=== PATIENT | female | born 1990 | race Caucasian/White ===

== ENCOUNTER 2024-07-06 15:44 | Inpatient (IN) | payer MEDICAID ==
[~2024-07-06] VITALS: Ht 162.6 cm; Wt 77.5 kg
[2024-07-06 20:08] VITALS: RESP 16; O2SAT 98
[2024-07-06] MEDS ORDERED: mag hydrox/Alum hydrox/simeth 30ml oral suspension PO PRN (21:00)
[2024-07-06] MEDS ORDERED: acetaminophen 325mg tablet PO PRN ×2 (21:00)
[2024-07-06] MEDS ORDERED: magnesium hydroxide 30ml (MOM) UD suspension PO PRN (21:00)
[2024-07-06 22:26] VITALS: BP 126/85; PULSE 78; RESP 16; TEMP 97; O2SAT 98
[2024-07-06] MEDS ORDERED: OLAN5TAB3 PO (23:59)
[2024-07-07] MEDS ORDERED: LAMO150T2 PO (00:07)
[2024-07-07] MEDS ORDERED: TEN1T PO (00:07)
[2024-07-07] MEDS ORDERED: FLUO10CA28 PO (00:07)
[2024-07-07] MEDS: OLANZAPINE 5 MG TABLET PO ONE (01:22)
[2024-07-07] MEDS: guanFACINE 1 mg tablet PO ONE (01:22)
[2024-07-07] MEDS: traZODone 50mg tablet PO PRN (01:23)
[2024-07-07] MEDS: lamoTRIgine 25mg tablet PO ONE (01:23)
[2024-07-07] MEDS: lamoTRIgine 100mg tablet PO ONE (01:24)
[2024-07-07 07:00] VITALS: BP 134/89; PULSE 71; RESP 16; TEMP 97.8; O2SAT 100
[2024-07-07] MEDS: lamoTRIgine 25mg tablet PO SCH (08:11)
[2024-07-07] MEDS: FLUoxetine 10mg capsule PO SCH (08:11)
[2024-07-07] MEDS: lamoTRIgine 100mg tablet PO SCH (08:11)
[2024-07-07 08:56] LABS: HEMOGLOBIN A1C 5.4 % (4.5-6.2)
[2024-07-07 09:20] LABS: CHOL/HDL RATIO 4.1 (0.00-4.99); CHOLESTEROL 200 MG/DL (0-200); HDL CHOLESTEROL 49 MG/DL (35-60); LDL CHOLESTEROL 128 MG/DL (50-100); TRIGLYCERIDES 93 MG/DL (20-135)
[2024-07-07] MEDS: OLANZAPINE 5 MG TABLET PO STA (10:05)
[2024-07-07] MEDS: LORazepam 1 MG tablet PO STA (10:05)
[2024-07-07 19:00] VITALS: BP 134/89; PULSE 105; RESP 16; TEMP 97.8; O2SAT 100
[2024-07-07] MEDS: diphenhydrAMINE 50 mg/ml inj ONE (19:39)
[2024-07-07] MEDS: haloperidol lactate 5mg/ml inj ONE (19:40)
[2024-07-07] MEDS: LORazepam 2 mg/ml vial ONE (19:40)
[2024-07-07] MEDS: OLANZAPINE 5 MG TABLET PO SCH (21:00)
[2024-07-07] MEDS: guanFACINE 1 mg tablet PO SCH (21:00)
[2024-07-08] MEDS: OLANZapine 5mg rapidly disint. tablet PO PRN (06:58)
[2024-07-08 07:00] VITALS: RESP 16; O2SAT 96; O2SAT 98
[2024-07-08] MEDS: diphenhydrAMINE 50 mg/ml inj ONE (07:52)
[2024-07-08] MEDS: LORazepam 2 mg/ml vial ONE (07:52)
[2024-07-08] MEDS: haloperidol lactate 5mg/ml inj ONE (07:52)
[2024-07-08 08:00] VITALS: BP 125/81; PULSE 77; RESP 16; TEMP 97.7; O2SAT 96
[2024-07-08 19:00] VITALS: RESP 16; O2SAT 96
[2024-07-08] MEDS ORDERED: haloperidol 5mg tablet PO PRN (19:30)
[2024-07-08 20:05] VITALS: RESP 16; O2SAT 96
[2024-07-08 20:08] VITALS: BP 112/81; PULSE 55; RESP 16; TEMP 97.4; O2SAT 96
[2024-07-08] MEDS: haloperidol 5mg tablet PO SCH (20:33)
[2024-07-09 07:30] VITALS: BP 129/94; PULSE 89; RESP 15; TEMP 98.2; O2SAT 99
[2024-07-09] MEDS ORDERED: TRAZ-251 PO (14:05)
[2024-07-09] MEDS ORDERED: HALO5TAB PO (14:13)
== END 2024-07-09 14:57 | disposition home or self-care (01) | DRG 750 ==
LOC: ADULT MH 20:08
PROVIDERS: ADMIT Psychiatry & Neurology Psychiatry; ATTEND Psychiatry & Neurology Psychiatry
DX: F25.9 Schizoaffective disorder, unspecified (principal); D68.00 Von Willebrand disease, unspecified; R45.851 Suicidal ideations; F90.9 Attention-deficit hyperactivity disorder, unspecified type; E66.3 Overweight; F43.10 Post-traumatic stress disorder, unspecified; T43.8X6A Underdosing of other psychotropic drugs, initial encounter; Z91.148 Patient's other noncompliance with medication regimen for other reason; Z90.49 Acquired absence of other specified parts of digestive tract; Z79.899 Other long term (current) drug therapy; Z88.8 Allergy status to other drugs, medicaments and biological substances; Y92.89 Other specified places as the place of occurrence of the external cause; Z68.29 Body mass index [BMI] 29.0-29.9, adult
CPT/HCPCS: 36415; 80061; 83036; 87081; 96365; 99291; J1200; J1630; J2060

== ENCOUNTER 2024-07-11 09:03 | Emergency (ER) | payer MEDICAID ==
[~2024-07-11] VITALS: Ht 162.6 cm; Wt 53.4 kg
[~2024-07-11 09:03] MED LIST: FLUO10CA28 PO; HALO5TAB PO; LAMO150T2 PO; TEN1T PO; TRAZ-251 PO
[2024-07-11 10:06] VITALS: BP 130/70; PULSE 80; RESP 14; TEMP 97.4; O2SAT 97
== END 2024-07-11 10:07 | disposition home or self-care (01) ==
LOC: ER 09:03
DX: F90.9 Attention-deficit hyperactivity disorder, unspecified type (principal); Z88.6 Allergy status to analgesic agent; Z79.899 Other long term (current) drug therapy
CPT/HCPCS: 99282

== ENCOUNTER 2024-07-12 19:47 | Inpatient (IN) | payer MEDICAID ==
[~2024-07-12] VITALS: Ht 162.6 cm; Wt 82.0 kg
[2024-07-12 20:32] LABS: BASOPHILS % (AUTO) 0.2 % (0-1); EOSINOPHILS % (AUTO) 0 % (0-6); HEMATOCRIT 36.5 % (35.0-45.0); HEMOGLOBIN 11.8 g/dl (12.0-16.0); LYMPHOCYTES # (AUTO) 2.4 X10'3 (1.1-4.8); LYMPHOCYTES % (AUTO) 17.9 % (21-51); MEAN CORPUSCULAR HEMOGLOBIN 27.4 PG (27.0-31.0); MEAN CORPUSCULAR HGB CONC 32.4 g/dL (33.0-36.5); MEAN CORPUSCULAR VOLUME 84.6 FL (78-98); MEAN PLATELET VOLUME 7.7 FL (7.4-10.4); MONOCYTES # (AUTO) 0.9 X10'3 (0-0.9); MONOCYTES % (AUTO) 6.5 % (2-12); NEUTROPHILS # (AUTO) 10.2 X10'3 (1.8-7.7); NEUTROPHILS % (AUTO) 75.4 % (42-75); PLATELET COUNT 433 X10'3 (140-440); RED BLOOD COUNT 4.31 X10'6 (4.20-5.60); RED CELL DISTRIBUTION WIDTH 14.3 % (11.5-14.5); WHITE BLOOD COUNT 13.5 X10'3 (4.5-11.0)
[2024-07-12] MEDS: naloxone 0.4 mg/ml inj IV ONE (20:34)
[2024-07-12 20:42] LABS: LITHIUM < 0.2 MMOL/L (0.8-1.2)
[2024-07-12 20:48] LABS: ALBUMIN 3.9 G/DL (3.4-5.0); ANION GAP 10 (8-16); BLOOD UREA NITROGEN 15 MG/DL (7-18); CALCIUM 8.8 MG/DL (8.5-10.1); CHLORIDE 102 MMOL/L (99-107); CREATININE 0.75 MG/DL (0.40-0.90); ETHANOL < 10 MG/DL (<10); GLUCOSE 138 MG/DL (70-104); POTASSIUM 3.2 MMOL/L (3.5-5.1); SALICYLATE 1.3 MG/DL (4.0-20.0); SODIUM 137 MMOL/L (135-145); THYROID STIMULATING HORMONE 1.34 ulU/ml (0.34-4.50); eCRCL 98 ML/MIN; eGFR 90 ML/MIN
[2024-07-12 20:50] LABS: ACETAMINOPHEN < 2.0 UG/ML (10-30)
[2024-07-13 04:05] LABS: BILIRUBIN,URINE NEGATIVE (Neg); CLARITY,URINE CLEAR (Clear); COLOR,URINE YELLOW (Yellow); GLUCOSE, URINE NEGATIVE (Neg); KETONES,URINE NEGATIVE (Neg); LEUKOCYTE ESTERASE ,URINE NEGATIVE (Neg); NITRITES, URINE NEGATIVE (Neg); OCCULT BLOOD,URINE TRACE-INTACT (Neg); PROTEIN,URINE NEGATIVE (Neg); URINE HCG NEGATIVE (NEG); UROBILINOGEN,URINE 0.2 E.U/dL (0.2-1.0)
[2024-07-13 04:07] LABS: UA COLLECTION TYPE STRAIGHT CATH
[2024-07-13 04:18] LABS: URINE AMPHETAMINE SCREEN NEGATIVE (Neg); URINE BARBITUATE SCREEN NEGATIVE (Neg); URINE BENZODIAZEPINES SCREEN NEGATIVE (Neg); URINE CANNABINOID SCREEN NEGATIVE (Neg); URINE COCAINE SCREEN NEGATIVE (Neg); URINE METHADONE SCREEN NEGATIVE (Neg); URINE OPIATE SCREEN NEGATIVE (Neg); URINE PHENCYCLIDINE SCREEN NEGATIVE (Neg)
[2024-07-13 04:19] LABS: WBC,URINE 0-4 /HPF (0-4)
[2024-07-13 04:20] LABS: BACTERIA,URINE NONE SEEN /HPF (Neg); MUCUS STRANDS NONE SEEN /LPF (Neg); SQUAMOUS EPITHELIAL CELL,UR FEW /LPF (FEW); TRANSITIONAL EPI CELLS,URINE FEW /HPF
[2024-07-13] MEDS: potassium Cl 20 mEq SR tablet PO STA (11:22)
[2024-07-13] MEDS ORDERED: OLAN5TAB3 PO (17:56)
[2024-07-13] MEDS ORDERED: acetaminophen 325mg tablet PO PRN (18:25)
[2024-07-13] MEDS ORDERED: mag hydrox/Alum hydrox/simeth 30ml oral suspension PO PRN (18:25)
[2024-07-13] MEDS ORDERED: loperamide 2mg capsule PO PRN (18:25)
[2024-07-13 19:00] VITALS: RESP 14; O2SAT 99
[2024-07-13 20:00] VITALS: BP 139/94; PULSE 78; RESP 14; TEMP 97.2; O2SAT 99
[2024-07-13] MEDS: OLANZAPINE 5 MG TABLET PO SCH (22:35)
[2024-07-13] MEDS: guanFACINE 1 mg tablet PO SCH (22:35)
[2024-07-13] MEDS: lamoTRIgine 100mg tablet PO SCH (22:35)
[2024-07-14] MEDS ORDERED: PRAZ2CAP2 PO (02:43)
[2024-07-14] MEDS ORDERED: HALO5TAB PO (02:49)
[2024-07-14 07:30] VITALS: RESP 12; O2SAT 97
[2024-07-14 08:00] VITALS: BP 123/82; PULSE 74; RESP 12; TEMP 98.1; O2SAT 97
[2024-07-14] MEDS: FLUoxetine 10mg capsule PO SCH (08:36)
[2024-07-14] MEDS: LORazepam 1 MG tablet PO ONE (12:40)
[2024-07-14 19:00] VITALS: RESP 18; O2SAT 99
[2024-07-14] MEDS: prazosin 1mg capsule PO SCH (20:41)
[2024-07-14] MEDS: OLANZAPINE 5 MG TABLET PO SCH (20:41)
[2024-07-14 20:46] VITALS: BP 133/86; PULSE 83; RESP 18; TEMP 97.8; O2SAT 99
[2024-07-15 07:00] VITALS: RESP 16; O2SAT 98
[2024-07-15 08:00] VITALS: BP 130/95; PULSE 90; RESP 16; TEMP 97.5; O2SAT 98
[2024-07-15] MEDS: FLUoxetine 10mg capsule PO SCH (08:14)
[2024-07-15] MEDS: hydrOXYzine 25 MG tablet PO PRN (13:02)
[2024-07-15 13:33] LABS: BASOPHILS % (AUTO) 0.3 % (0-1); EOSINOPHILS % (AUTO) 0 % (0-6); HEMATOCRIT 37.1 % (35.0-45.0); LYMPHOCYTES # (AUTO) 2.1 X10'3 (1.1-4.8); LYMPHOCYTES % (AUTO) 18.9 % (21-51); MEAN CORPUSCULAR HEMOGLOBIN 27.2 PG (27.0-31.0); MEAN CORPUSCULAR HGB CONC 32.4 g/dL (33.0-36.5); MEAN PLATELET VOLUME 7.7 FL (7.4-10.4); MONOCYTES # (AUTO) 0.6 X10'3 (0-0.9); MONOCYTES % (AUTO) 5.4 % (2-12); NEUTROPHILS # (AUTO) 8.4 X10'3 (1.8-7.7); NEUTROPHILS % (AUTO) 75.4 % (42-75); PLATELET COUNT 476 X10'3 (140-440); RED BLOOD COUNT 4.42 X10'6 (4.20-5.60); RED CELL DISTRIBUTION WIDTH 14.5 % (11.5-14.5); WHITE BLOOD COUNT 11.1 X10'3 (4.5-11.0)
[2024-07-15 13:41] LABS: ALANINE AMINOTRANSFERASE 15 U/L (12-78); ALBUMIN 3.9 G/DL (3.4-5.0); ALBUMIN/GLOBULIN RATIO 1.2 (1.1-1.5); ALKALINE PHOSPHATASE 77 IU/L (46-116); ANION GAP 6 (8-16); ASPARTATE AMINO TRANSFERASE 13 U/L (10-37); BILIRUBIN,TOTAL 0.5 MG/DL (0.1-1.0); BLOOD UREA NITROGEN 8 MG/DL (7-18); BUN/CREATININE RATIO 10.1 (10.0-20.0); CALCIUM 8.8 MG/DL (8.5-10.1); CHLORIDE 103 MMOL/L (99-107); CREATININE 0.79 MG/DL (0.40-0.90); GLUCOSE 132 MG/DL (70-104); SODIUM 135 MMOL/L (135-145); TOTAL CARBON DIOXIDE 26.4 MMOL/L (24-32); TOTAL PROTEIN 7.2 G/DL (6.4-8.2); eCRCL 89 ML/MIN; eGFR 85 ML/MIN
[2024-07-15] MEDS: nystatin 15 GM powder TP PRN (15:28)
[2024-07-15 19:00] VITALS: BP 116/75; PULSE 71; RESP 16; TEMP 96.9; O2SAT 98
[2024-07-15] MEDS: docusate sod 100mg capsule PO SCH (20:57)
[2024-07-16 07:00] VITALS: RESP 16; O2SAT 100
[2024-07-16 07:30] VITALS: BP 131/83; PULSE 89; RESP 16; TEMP 98.4; O2SAT 100
[2024-07-16 19:10] VITALS: BP 133/88; PULSE 90; RESP 16; TEMP 96.8; O2SAT 99
[2024-07-16 19:12] VITALS: RESP 16; O2SAT 99
[2024-07-16] MEDS: traZODone 50mg tablet PO ONE (21:59)
[2024-07-16] MEDS ORDERED: traZODone 50mg tablet PO PRN (22:00)
[2024-07-17 07:02] VITALS: BP 134/94; PULSE 88; RESP 16; TEMP 98.1; O2SAT 99
[2024-07-17 07:30] VITALS: RESP 16; O2SAT 99
[2024-07-17] MEDS: atomoxetine 25mg capsule PO SCH (08:33)
[2024-07-17] MEDS: FLUoxetine 10mg capsule PO SCH (08:35)
[2024-07-17] MEDS: OLANZapine 5mg rapidly disint. tablet PO PRN (11:00)
[2024-07-17 19:00] VITALS: RESP 18; O2SAT 99
[2024-07-17 20:00] VITALS: BP 109/85; PULSE 78; RESP 18; TEMP 97; O2SAT 99
[2024-07-17] MEDS: traZODone 50mg tablet PO SCH (20:45)
[2024-07-17] MEDS: lamoTRIgine 100mg tablet PO SCH (20:46)
[2024-07-17] MEDS: OLANZAPINE 5 MG TABLET PO SCH (20:46)
[2024-07-18 07:00] VITALS: BP 122/77; PULSE 84; RESP 16; TEMP 98.6; O2SAT 98
[2024-07-18] MEDS ORDERED: lamoTRIgine 100mg tablet PO SCH (08:00)
[2024-07-18] MEDS ORDERED: OLANZAPINE 5 MG TABLET PO SCH (08:00)
[2024-07-18] MEDS: lamoTRIgine 100mg tablet PO SCH (08:32)
[2024-07-18] MEDS: PALIPERIDONE 3 MG TAB.ER.24 PO SCH (08:33)
[2024-07-18 19:00] VITALS: RESP 16; O2SAT 100
[2024-07-18] MEDS ORDERED: QUEtiapine 25mg tablet PO PRN (19:30)
[2024-07-18 20:00] VITALS: BP 131/78; PULSE 99; RESP 16; TEMP 97.8; O2SAT 100
[2024-07-18] MEDS: guanFACINE 1 mg tablet PO SCH (20:20)
[2024-07-18] MEDS: magnesium hydroxide 30ml (MOM) UD suspension PO PRN (20:25)
[2024-07-19 07:00] VITALS: RESP 16; O2SAT 99
[2024-07-19 08:00] VITALS: BP 117/68; PULSE 65; RESP 16; TEMP 97.1; O2SAT 99
[2024-07-19 19:00] VITALS: RESP 18; O2SAT 99
[2024-07-19 20:00] VITALS: BP 121/81; PULSE 73; RESP 18; TEMP 98.2; O2SAT 99
[2024-07-20 07:00] VITALS: BP 125/80; PULSE 72; RESP 16; TEMP 97.5; O2SAT 99
[2024-07-20] MEDS: PALIPERIDONE 3 MG TAB.ER.24 PO SCH (08:16)
[2024-07-20] MEDS: haloperidol lactate 5mg/ml inj ONE (10:08)
[2024-07-20] MEDS: diphenhydrAMINE 50 mg/ml inj ONE (10:08)
[2024-07-20] MEDS: LORazepam 2 mg/ml vial ONE (10:09)
[2024-07-20] MEDS: magnesium citrate 296ml oral solution PO ONE (13:50)
[2024-07-20 19:00] VITALS: RESP 18; O2SAT 98
[2024-07-20 20:00] VITALS: BP 121/79; PULSE 90; RESP 18; TEMP 97.3; O2SAT 98
[2024-07-20] MEDS: OLANZapine 5mg rapidly disint. tablet PO SCH (21:42)
[2024-07-20] MEDS: traZODone 50mg tablet PO ONE (22:22)
[2024-07-21 07:00] VITALS: BP 137/92; PULSE 85; RESP 18; TEMP 97.4; O2SAT 100
[2024-07-21] MEDS: guanFACINE 1 mg tablet PO SCH (08:20)
[2024-07-21] MEDS: magnesium citrate 296ml oral solution PO ONE (12:45)
[2024-07-21] MEDS: paliperidone palmitate inj 234 MG/1.5 ML SYRINGE IM ONE (15:27)
[2024-07-21 19:00] VITALS: RESP 14; O2SAT 98
[2024-07-21 20:00] VITALS: BP 120/80; PULSE 72; RESP 14; TEMP 98.2; O2SAT 98
[2024-07-22 01:00] VITALS: BP 132/79; PULSE 80; RESP 16; TEMP 97.8; O2SAT 99
[2024-07-22 07:00] VITALS: RESP 16; O2SAT 99
[2024-07-22 08:00] VITALS: BP 117/79; PULSE 90; RESP 16; TEMP 97.6; O2SAT 99
[2024-07-22] MEDS ORDERED: PALIPERIDONE 3 MG TAB.ER.24 PO SCH (08:00)
[2024-07-22 09:04] LABS: BASOPHILS % (AUTO) 0.4 % (0-1); EOSINOPHILS % (AUTO) 0 % (0-6); HEMOGLOBIN 11.4 g/dl (12.0-16.0); LYMPHOCYTES # (AUTO) 1.8 X10'3 (1.1-4.8); LYMPHOCYTES % (AUTO) 20.8 % (21-51); MEAN CORPUSCULAR HEMOGLOBIN 27.9 PG (27.0-31.0); MEAN CORPUSCULAR HGB CONC 32.5 g/dL (33.0-36.5); MEAN CORPUSCULAR VOLUME 85.8 FL (78-98); MEAN PLATELET VOLUME 7.6 FL (7.4-10.4); MONOCYTES # (AUTO) 0.7 X10'3 (0-0.9); NEUTROPHILS # (AUTO) 6.1 X10'3 (1.8-7.7); NEUTROPHILS % (AUTO) 70.8 % (42-75); PLATELET COUNT 458 X10'3 (140-440); RED BLOOD COUNT 4.08 X10'6 (4.20-5.60); RED CELL DISTRIBUTION WIDTH 15.2 % (11.5-14.5); WHITE BLOOD COUNT 8.6 X10'3 (4.5-11.0)
[2024-07-22 09:13] LABS: ALANINE AMINOTRANSFERASE 16 U/L (12-78); ALBUMIN 3.6 G/DL (3.4-5.0); ALBUMIN/GLOBULIN RATIO 1.2 (1.1-1.5); ALKALINE PHOSPHATASE 67 IU/L (46-116); ANION GAP 6 (8-16); ASPARTATE AMINO TRANSFERASE 19 U/L (10-37); BILIRUBIN,TOTAL 0.3 MG/DL (0.1-1.0); BLOOD UREA NITROGEN 7 MG/DL (7-18); BUN/CREATININE RATIO 9.7 (10.0-20.0); CALCIUM 8.5 MG/DL (8.5-10.1); CHLORIDE 102 MMOL/L (99-107); CREATININE 0.72 MG/DL (0.40-0.90); GLUCOSE 112 MG/DL (70-104); POTASSIUM 3.9 MMOL/L (3.5-5.1); SODIUM 136 MMOL/L (135-145); TOTAL PROTEIN 6.7 G/DL (6.4-8.2); eCRCL 98 ML/MIN; eGFR > 90 ML/MIN
[2024-07-22 19:00] VITALS: BP 105/75; PULSE 86; RESP 16; TEMP 97.6; O2SAT 98
[2024-07-23] MEDS ORDERED: lamoTRIgine 100mg tablet PO SCH (06:54)
[2024-07-23 07:00] VITALS: RESP 16; O2SAT 100
[2024-07-23 07:15] VITALS: BP 110/73; PULSE 70; RESP 16; TEMP 96.3; O2SAT 100
[2024-07-23] MEDS: lamoTRIgine 100mg tablet PO SCH (07:18)
[2024-07-23] MEDS: lamoTRIgine 25mg tablet PO SCH (07:18)
[2024-07-23 19:00] VITALS: RESP 16; O2SAT 100
[2024-07-23 19:32] VITALS: BP 109/72; PULSE 74; RESP 16; TEMP 97.4
[2024-07-24 07:00] VITALS: RESP 16; O2SAT 100
[2024-07-24 07:30] VITALS: BP 110/79; PULSE 78; RESP 16; TEMP 97.7; O2SAT 100
[2024-07-24] MEDS: polyethylene glycol 3350 17gm powd pack PO ONE (18:40)
[2024-07-24 19:00] VITALS: RESP 16; O2SAT 100
[2024-07-24 20:00] VITALS: BP 129/98; PULSE 105; RESP 18; TEMP 97.6; O2SAT 100
[2024-07-24] MEDS: diphenhydrAMINE 50 mg/ml inj ONE (21:05)
[2024-07-24] MEDS: LORazepam 2 mg/ml vial ONE (21:06)
[2024-07-24] MEDS: haloperidol lactate 5mg/ml inj ONE (21:06)
[2024-07-25 08:00] VITALS: BP 121/80; PULSE 74; RESP 16; TEMP 97.2; O2SAT 99
[2024-07-25] MEDS: venlafaxine 25mg tablet PO SCH (08:29)
[2024-07-25] MEDS: paliperidone palmitate 156 mg/ml inj.**IM only IM ONE (08:30)
[2024-07-25 19:00] VITALS: RESP 18; O2SAT 99
[2024-07-25 20:00] VITALS: BP 111/75; PULSE 73; RESP 16; TEMP 97.7
[2024-07-25] MEDS: polyethylene glycol 3350 17gm powd pack PO SCH (20:05)
[2024-07-26 07:33] VITALS: BP 121/79; PULSE 83; RESP 14; TEMP 97.8; O2SAT 99
[2024-07-26] MEDS: acetaminophen 325mg tablet PO PRN (07:47)
[2024-07-26 19:00] VITALS: RESP 18; O2SAT 100
[2024-07-26] MEDS ORDERED: LIDOcaine 5% patch TP PRN (19:00)
[2024-07-26 20:00] VITALS: BP 121/84; PULSE 77; RESP 14; TEMP 97.6; O2SAT 99
[2024-07-26] MEDS: hydrOXYzine 25 MG tablet PO SCH (20:19)
[2024-07-27 07:48] VITALS: BP 122/75; PULSE 82; RESP 16; TEMP 97.2; O2SAT 99
[2024-07-27] MEDS ORDERED: OLANZapine 5mg rapidly disint. tablet PO SCH (13:00)
[2024-07-27] MEDS ORDERED: olanzapine 10mg tablet PO SCH (13:00)
[2024-07-27] MEDS: olanzapine 10mg tablet PO ONE (13:12)
[2024-07-27 19:00] VITALS: BP 123/83; PULSE 72; RESP 14; TEMP 97.6; O2SAT 100
[2024-07-27] MEDS: venlafaxine 25mg tablet PO SCH (20:55)
[2024-07-27 21:44] VITALS: BP_SYST 121; BP_SYST 133; BP_SYST 159; BP_DIAS 83; BP_DIAS 85; BP_DIAS 94; PULSE 85; PULSE 89
[2024-07-27 21:47] VITALS: BP 121/83; PULSE 89; RESP 18; TEMP 97.8; O2SAT 100
[2024-07-28 07:48] VITALS: BP 115/80; PULSE 75; RESP 12; TEMP 97.5; O2SAT 99
[2024-07-28] MEDS: OLANZapine 5mg rapidly disint. tablet PO SCH (12:59)
[2024-07-28 14:13] VITALS: BP 144/92; PULSE 93; TEMP 98.3; O2SAT 100
[2024-07-28] MEDS: LORazepam 1 MG tablet PO STA (14:23)
[2024-07-28 15:10] LABS: BASOPHILS % (AUTO) 0.4 % (0-1); EOSINOPHILS % (AUTO) 0 % (0-6); HEMATOCRIT 33.7 % (35.0-45.0); HEMOGLOBIN 10.8 g/dl (12.0-16.0); LYMPHOCYTES # (AUTO) 2.1 X10'3 (1.1-4.8); LYMPHOCYTES % (AUTO) 24.1 % (21-51); MEAN CORPUSCULAR HEMOGLOBIN 26.9 PG (27.0-31.0); MEAN CORPUSCULAR HGB CONC 32.1 g/dL (33.0-36.5); MEAN CORPUSCULAR VOLUME 84.1 FL (78-98); MONOCYTES # (AUTO) 0.6 X10'3 (0-0.9); NEUTROPHILS # (AUTO) 5.9 X10'3 (1.8-7.7); NEUTROPHILS % (AUTO) 68.5 % (42-75); PLATELET COUNT 444 X10'3 (140-440); RED BLOOD COUNT 4.01 X10'6 (4.20-5.60); WHITE BLOOD COUNT 8.6 X10'3 (4.5-11.0)
[2024-07-28 15:30] LABS: ALANINE AMINOTRANSFERASE 18 U/L (12-78); ALBUMIN 3.3 G/DL (3.4-5.0); ALKALINE PHOSPHATASE 77 IU/L (46-116); ANION GAP 6 (8-16); ASPARTATE AMINO TRANSFERASE 14 U/L (10-37); BILIRUBIN,TOTAL 0.2 MG/DL (0.1-1.0); BLOOD UREA NITROGEN 11 MG/DL (7-18); BUN/CREATININE RATIO 13.3 (10.0-20.0); CALCIUM 8.5 MG/DL (8.5-10.1); CHLORIDE 103 MMOL/L (99-107); CREATININE 0.83 MG/DL (0.40-0.90); GLUCOSE 102 MG/DL (70-104); POTASSIUM 3.8 MMOL/L (3.5-5.1); SODIUM 137 MMOL/L (135-145); TOTAL CARBON DIOXIDE 27.9 MMOL/L (24-32); TOTAL PROTEIN 6.7 G/DL (6.4-8.2); eCRCL 85 ML/MIN; eGFR 80 ML/MIN
[2024-07-28 15:35] LABS: CREATINE KINASE 66 U/L (26-192); CREATINE KINASE MB 0.8 ng/ml (0.3-3.6)
[2024-07-28 20:00] VITALS: BP 98/60; PULSE 73; RESP 20; TEMP 97.7; O2SAT 96
[2024-07-29 07:30] VITALS: BP 105/75; PULSE 77; RESP 16; TEMP 97.5; O2SAT 100
[2024-07-29] MEDS: magnesium citrate 296ml oral solution PO ONE (12:15)
[2024-07-29] MEDS: diphenhydrAMINE 50 mg/ml inj ONE ×2 (12:34→19:16)
[2024-07-29] MEDS: haloperidol lactate 5mg/ml inj ONE ×2 (12:34→19:15)
[2024-07-29] MEDS: LORazepam 2 mg/ml vial ONE ×2 (12:35→19:16)
[2024-07-29] MEDS: LORazepam 1 MG tablet PO ONE (13:21)
[2024-07-30 07:30] VITALS: BP 126/79; PULSE 80; RESP 20; TEMP 97.3; O2SAT 95
[2024-07-30] MEDS: bisacodyl 10mg suppository rectal RC PRN (10:25)
[2024-07-30 19:45] VITALS: BP 117/80; PULSE 81; RESP 18; TEMP 98; O2SAT 98
[2024-07-30 20:42] VITALS: BP 117/81; PULSE 81
[2024-07-31 07:30] VITALS: BP 118/80; PULSE 82; RESP 16; TEMP 98; O2SAT 99
[2024-07-31] MEDS: LORazepam 1 MG tablet PO ONE (17:46)
[2024-07-31 19:22] VITALS: BP 112/73; PULSE 73; RESP 20; RESP 25; TEMP 97.5; O2SAT 99
[2024-07-31] MEDS: venlafaxine 25mg tablet PO SCH (19:50)
[2024-07-31] MEDS: haloperidol lactate 5mg/ml inj ONE (19:58)
[2024-07-31] MEDS: diphenhydrAMINE 50 mg/ml inj ONE (19:59)
[2024-07-31] MEDS: LORazepam 2 mg/ml vial ONE (19:59)
[2024-08-01 07:00] VITALS: RESP 20; O2SAT 98
[2024-08-01 08:00] VITALS: BP 121/82; PULSE 87; RESP 20; TEMP 98.1; O2SAT 98
[2024-08-01] MEDS: LORazepam 1 MG tablet PO ONE (10:45)
[2024-08-01 19:00] VITALS: BP 111/64; PULSE 87; RESP 15; RESP 16; TEMP 96.9; O2SAT 100
[2024-08-02 07:37] VITALS: RESP 20; O2SAT 98
[2024-08-02 08:00] VITALS: BP 124/87; PULSE 79; RESP 16; TEMP 97.7; O2SAT 99
[2024-08-02] MEDS: olanzapine 10mg tablet PO SCH (08:00)
[2024-08-02 19:00] VITALS: RESP 14; O2SAT 99
[2024-08-02 20:00] VITALS: BP 94/60; PULSE 79; RESP 16; O2SAT 99
[2024-08-03 07:00] VITALS: RESP 20; O2SAT 98
[2024-08-03 08:00] VITALS: BP 130/76; PULSE 80; RESP 16; TEMP 97.5; O2SAT 100
[2024-08-03 19:00] VITALS: RESP 16; O2SAT 79
[2024-08-03 20:00] VITALS: BP 109/78; PULSE 79; RESP 16; TEMP 97.5; O2SAT 98
[2024-08-03] MEDS: LORazepam 1 MG tablet PO PRN (21:04)
[2024-08-04 07:00] VITALS: RESP 20; O2SAT 98
[2024-08-04 08:00] VITALS: RESP 16
[2024-08-04 19:19] VITALS: RESP 14; O2SAT 96
[2024-08-04 19:23] VITALS: BP 103/69; PULSE 78; RESP 18; TEMP 98; O2SAT 96
[2024-08-05 07:00] VITALS: BP 115/88; PULSE 86; RESP 16; TEMP 98.1; O2SAT 99
[2024-08-05] MEDS: OLANZapine 5mg rapidly disint. tablet PO ONE (16:25)
[2024-08-05 19:52] VITALS: BP 117/79; PULSE 85; RESP 16; TEMP 97.3; O2SAT 99
[2024-08-06 07:00] VITALS: RESP 14; O2SAT 99
[2024-08-06 07:30] VITALS: BP 115/76; PULSE 82; RESP 14; TEMP 98.1; O2SAT 99
[2024-08-06] MEDS: LORazepam 2 mg/ml vial ONE (08:50)
[2024-08-06] MEDS: diphenhydrAMINE 50 mg/ml inj ONE (08:51)
[2024-08-06] MEDS: haloperidol lactate 5mg/ml inj ONE (08:51)
[2024-08-06] MEDS: LORazepam 2 mg/ml vial IM ONE (08:56)
[2024-08-06] MEDS: haloperidol lactate 5mg/ml inj IM ONE (08:57)
[2024-08-06] MEDS: diphenhydrAMINE 50 mg/ml inj IM ONE (08:57)
[2024-08-06 19:17] VITALS: RESP 14; O2SAT 98
[2024-08-06 19:20] VITALS: BP 86/53; PULSE 83; RESP 14; TEMP 98.1; O2SAT 98
[2024-08-07 07:00] VITALS: BP 130/88; PULSE 85; RESP 14; TEMP 98; O2SAT 99
[2024-08-07] MEDS: PARoxetine 20mg tablet PO SCH (07:56)
[2024-08-07 19:00] VITALS: RESP 14; O2SAT 99
[2024-08-07 19:16] VITALS: BP 110/74; PULSE 75; RESP 14; TEMP 97.8; O2SAT 99
[2024-08-07] MEDS: diphenhydrAMINE 50 mg/ml inj ONE (19:31)
[2024-08-07] MEDS: LORazepam 2 mg/ml vial ONE (19:32)
[2024-08-07] MEDS: haloperidol lactate 5mg/ml inj ONE (19:32)
[2024-08-07] MEDS: traZODone 50mg tablet PO PRN (21:38)
[2024-08-07] MEDS: prazosin 5mg capsule PO SCH (21:38)
[2024-08-08 07:00] VITALS: BP 121/85; PULSE 86; RESP 12; TEMP 98; O2SAT 98
[2024-08-08] MEDS: diphenhydrAMINE 25mg capsule PO SCH (16:44)
[2024-08-08] MEDS: LORazepam 1 MG tablet PO SCH (16:44)
[2024-08-08] MEDS: haloperidol 5mg tablet PO SCH (16:45)
[2024-08-08 19:00] VITALS: RESP 14; O2SAT 99
[2024-08-08 20:00] VITALS: BP 115/75; PULSE 79; RESP 14; TEMP 97.9; O2SAT 98
[2024-08-09 07:00] VITALS: BP 126/88; PULSE 80; RESP 12; TEMP 97.8; O2SAT 100
[2024-08-09 20:00] VITALS: BP 91/57; PULSE 83; RESP 16; TEMP 97.5; O2SAT 98
[2024-08-10 07:30] VITALS: BP 115/84; PULSE 76; RESP 16; TEMP 97.9; O2SAT 98
[2024-08-10 19:00] VITALS: RESP 14; O2SAT 98
[2024-08-10 20:00] VITALS: BP 110/80; PULSE 61; RESP 14; TEMP 99.2; O2SAT 98
[2024-08-10] MEDS: haloperidol 5mg tablet PO SCH (21:00)
[2024-08-11 07:30] VITALS: BP 117/78; PULSE 86; RESP 16; TEMP 97.5; O2SAT 100
[2024-08-11 07:59] VITALS: RESP 16; O2SAT 100
[2024-08-11 19:00] VITALS: RESP 18; O2SAT 100
[2024-08-11 19:20] VITALS: BP 106/65; PULSE 67; RESP 18; TEMP 97; O2SAT 100
[2024-08-11 20:30] VITALS: BP 110/80
[2024-08-11] MEDS: olanzapine 10mg tablet PO SCH (20:41)
[2024-08-11] MEDS: venlafaxine 37.5mg tablet PO SCH (20:41)
[2024-08-12 07:30] VITALS: BP 117/79; PULSE 73; RESP 16; TEMP 98.1; O2SAT 98
[2024-08-12] MEDS: PARoxetine 10mg tablet PO SCH (07:54)
[2024-08-12 08:00] VITALS: BP 117/79; PULSE 83; RESP 16; TEMP 98.1; O2SAT 98
[2024-08-12] MEDS: diphenhydrAMINE 50 mg/ml inj ONE (17:16)
[2024-08-12] MEDS: haloperidol lactate 5mg/ml inj ONE (17:16)
[2024-08-12] MEDS: LORazepam 2 mg/ml vial ONE (17:17)
[2024-08-12 19:29] VITALS: RESP 14; O2SAT 99
[2024-08-12 19:36] VITALS: BP 108/75; PULSE 76; RESP 14; TEMP 97.6; O2SAT 99
[2024-08-13] MEDS: diphenhydrAMINE 50 mg/ml inj ONE (06:08)
[2024-08-13] MEDS: haloperidol lactate 5mg/ml inj ONE (06:08)
[2024-08-13] MEDS: LORazepam 2 mg/ml vial ONE (06:08)
[2024-08-13 07:30] VITALS: BP 111/75; PULSE 80; RESP 14; TEMP 98.4; O2SAT 97
[2024-08-13 20:56] VITALS: BP 125/84; PULSE 69; RESP 14; TEMP 98.2; O2SAT 98
[2024-08-14 07:00] VITALS: RESP 14; O2SAT 97
[2024-08-14 08:00] VITALS: BP 120/79; PULSE 87; RESP 14; TEMP 97.9; O2SAT 97
[2024-08-14 15:45] LABS: BASOPHILS % (AUTO) 0.3 % (0-1); EOSINOPHILS % (AUTO) 0.1 % (0-6); HEMATOCRIT 37.2 % (35.0-45.0); HEMOGLOBIN 12.1 g/dl (12.0-16.0); LYMPHOCYTES # (AUTO) 2.5 X10'3 (1.1-4.8); MEAN CORPUSCULAR HEMOGLOBIN 27.1 PG (27.0-31.0); MEAN CORPUSCULAR HGB CONC 32.6 g/dL (33.0-36.5); MEAN CORPUSCULAR VOLUME 83.2 FL (78-98); MEAN PLATELET VOLUME 7.2 FL (7.4-10.4); MONOCYTES # (AUTO) 0.7 X10'3 (0-0.9); MONOCYTES % (AUTO) 7.2 % (2-12); NEUTROPHILS # (AUTO) 5.8 X10'3 (1.8-7.7); NEUTROPHILS % (AUTO) 64.4 % (42-75); PLATELET COUNT 505 X10'3 (140-440); RED BLOOD COUNT 4.47 X10'6 (4.20-5.60); RED CELL DISTRIBUTION WIDTH 15.4 % (11.5-14.5); WHITE BLOOD COUNT 9.1 X10'3 (4.5-11.0)
[2024-08-14 19:59] VITALS: BP 111/65; PULSE 77; RESP 16; TEMP 97.1; O2SAT 100
[2024-08-15 07:00] VITALS: RESP 18; O2SAT 98
[2024-08-15 08:00] VITALS: BP 104/67; PULSE 77; RESP 18; TEMP 97.4; O2SAT 98
[2024-08-15 19:37] VITALS: RESP 18; O2SAT 100
[2024-08-15 22:12] VITALS: BP 111/68; PULSE 75; RESP 18; TEMP 98.1; O2SAT 100
[2024-08-16 07:00] VITALS: RESP 16; O2SAT 99
[2024-08-16 09:57] VITALS: BP 117/79; PULSE 80; RESP 16; TEMP 97.5; O2SAT 99
[2024-08-16] MEDS ORDERED: CLOZAPINE 25 MG oral disintegrating tablet PO SCH (12:30)
[2024-08-16] MEDS ORDERED: clozapine 25mg tablet PO SCH (12:51)
[2024-08-16 19:00] VITALS: RESP 14; O2SAT 99
[2024-08-16 20:00] VITALS: BP 117/79; PULSE 72; RESP 14; TEMP 97.3; O2SAT 99
[2024-08-17 07:00] VITALS: RESP 16; O2SAT 100
[2024-08-17 08:00] VITALS: BP 125/82; PULSE 73; RESP 16; TEMP 97.4; O2SAT 100
[2024-08-17] MEDS: clozapine 25mg tablet PO SCH (12:21)
[2024-08-17 19:00] VITALS: RESP 15; O2SAT 99
[2024-08-17 20:00] VITALS: BP 102/66; PULSE 70; RESP 15; TEMP 98; O2SAT 99
[2024-08-18 07:30] VITALS: BP 112/82; PULSE 79; RESP 12; TEMP 97.7; O2SAT 100
[2024-08-18] MEDS: CLOZAPINE 25 MG oral disintegrating tablet PO ONE (16:08)
[2024-08-18 19:00] VITALS: BP 108/64; PULSE 98; RESP 16; RESP 18; TEMP 98.6; O2SAT 96; O2SAT 98
[2024-08-19 07:30] VITALS: BP 100/60; PULSE 76; RESP 16; TEMP 98; O2SAT 96
[2024-08-19 19:00] VITALS: RESP 18; O2SAT 100
[2024-08-19 20:00] VITALS: BP 107/80; PULSE 100; RESP 18; TEMP 97.7; O2SAT 100
[2024-08-19] MEDS: CLOZAPINE 25 MG oral disintegrating tablet PO SCH (20:49)
[2024-08-20 07:30] VITALS: BP 126/78; PULSE 99; RESP 16; TEMP 98.8; O2SAT 100
[2024-08-20] MEDS ORDERED: PARoxetine 20mg tablet PO SCH (08:00)
[2024-08-20] MEDS: PARoxetine 10mg tablet PO ONE (09:46)
[2024-08-20] MEDS: diphenhydrAMINE 25mg capsule PO ONE (09:47)
[2024-08-20] MEDS: LORazepam 1 MG tablet PO ONE (09:47)
[2024-08-20 19:34] VITALS: BP 119/72; PULSE 78; RESP 16; TEMP 98.5; O2SAT 97
[2024-08-20] MEDS: clozapine 100mg tablet PO SCH (20:11)
[2024-08-21 07:00] VITALS: RESP 16; O2SAT 99
[2024-08-21] MEDS: OLANZAPINE 5 MG TABLET PO SCH (07:26)
[2024-08-21] MEDS: PARoxetine 10mg tablet PO SCH (07:26)
[2024-08-21 08:00] VITALS: BP 130/85; PULSE 100; RESP 16; TEMP 98.1; O2SAT 99
[2024-08-21 19:16] VITALS: BP 126/100; PULSE 97; RESP 18; TEMP 97.5; O2SAT 98
[2024-08-21 19:17] VITALS: RESP 18; O2SAT 100
[2024-08-22 07:00] VITALS: RESP 16; O2SAT 99
[2024-08-22 07:35] VITALS: BP 138/93; PULSE 90; RESP 12; TEMP 97.8; O2SAT 99
[2024-08-22] MEDS: OLANZAPINE 5 MG TABLET PO SCH (08:55)
[2024-08-22] MEDS: PARoxetine 20mg tablet PO SCH (08:56)
[2024-08-22] MEDS ORDERED: PRAZ5CAP2 PO (15:40)
[2024-08-22] MEDS ORDERED: PARO20TA6 PO (15:40)
[2024-08-22] MEDS ORDERED: CLOZ100T13 PO (15:40)
[2024-08-22] MEDS ORDERED: LAMO100T PO (15:40)
[2024-08-22] MEDS: SUMAtriptan 25 MG tablet PO PRN (16:55)
[2024-08-22 22:00] VITALS: BP 121/86; PULSE 82; RESP 18; TEMP 98.1; O2SAT 99
[2024-08-22 22:40] VITALS: BP 121/86; PULSE 82; RESP 18; TEMP 98.1; O2SAT 99
[2024-08-23 00:25] VITALS: RESP 18; O2SAT 99
[2024-08-23 07:00] VITALS: RESP 14; O2SAT 98
[2024-08-23 08:00] VITALS: BP 142/94; PULSE 101; RESP 14; TEMP 97.6; O2SAT 98
[2024-08-23] MEDS: lamoTRIgine 100mg tablet PO SCH (08:20)
[2024-08-23 08:56] LABS: BASOPHILS % (AUTO) 0.3 % (0-1); EOSINOPHILS % (AUTO) 0 % (0-6); HEMATOCRIT 36.7 % (35.0-45.0); LYMPHOCYTES # (AUTO) 1.9 X10'3 (1.1-4.8); LYMPHOCYTES % (AUTO) 25.3 % (21-51); MEAN CORPUSCULAR HEMOGLOBIN 27.3 PG (27.0-31.0); MEAN CORPUSCULAR HGB CONC 32.7 g/dL (33.0-36.5); MEAN CORPUSCULAR VOLUME 83.5 FL (78-98); MEAN PLATELET VOLUME 7.1 FL (7.4-10.4); MONOCYTES # (AUTO) 0.5 X10'3 (0-0.9); MONOCYTES % (AUTO) 7.1 % (2-12); NEUTROPHILS # (AUTO) 5.2 X10'3 (1.8-7.7); NEUTROPHILS % (AUTO) 67.3 % (42-75); PLATELET COUNT 495 X10'3 (140-440); RED BLOOD COUNT 4.39 X10'6 (4.20-5.60); RED CELL DISTRIBUTION WIDTH 15.6 % (11.5-14.5); WHITE BLOOD COUNT 7.7 X10'3 (4.5-11.0)
[2024-08-23 19:00] VITALS: RESP 15; O2SAT 95
[2024-08-23 20:00] VITALS: BP 142/94; PULSE 101; RESP 14; TEMP 98; O2SAT 98
[2024-08-23] MEDS ORDERED: SUMA25TA9 PO (21:15)
[2024-08-24 07:00] VITALS: BP 142/95; PULSE 120; RESP 12; TEMP 98; O2SAT 97
[2024-08-24] MEDS ORDERED: TEN1T PO ×2 (09:38)
[2024-08-24] MEDS ORDERED: OLAN5TAB75 PO (09:38)
[2024-08-24] MEDS ORDERED: CLOZ100T13 PO (09:44)
[2024-08-24] MEDS: OLANZAPINE 5 MG TABLET PO SCH (12:19)
[2024-08-24] MEDS: guanFACINE 1 mg tablet PO SCH ×2 (12:21→21:00)
[2024-08-24 19:00] VITALS: RESP 14; O2SAT 98
[2024-08-24 20:00] VITALS: BP 142/95; PULSE 93; RESP 12; TEMP 98; O2SAT 97
[2024-08-24] MEDS: paliperidone palmitate inj 234 MG/1.5 ML SYRINGE IM ONE (20:10)
[2024-08-24] MEDS: clozapine 25mg tablet PO SCH (22:16)
[2024-08-25 07:00] VITALS: BP 122/85; PULSE 100; RESP 14; TEMP 98.2; O2SAT 100
[2024-08-25 19:27] VITALS: BP 110/69; PULSE 81; RESP 20; TEMP 96.5; O2SAT 100
[2024-08-25] MEDS ORDERED: OLANZAPINE 5 MG TABLET PO SCH (21:00)
[2024-08-26 07:30] VITALS: BP 114/79; PULSE 91; RESP 14; TEMP 97.2; O2SAT 99
[2024-08-26] MEDS: OLANZAPINE 5 MG TABLET PO ONE (08:07)
[2024-08-26] MEDS: acetaminophen 325mg tablet PO PRN (13:58)
[2024-08-26 19:00] VITALS: BP 110/67; PULSE 88; RESP 18; TEMP 97.7; O2SAT 99
[2024-08-26] MEDS: OLANZAPINE 5 MG TABLET PO SCH (20:18)
[2024-08-27 07:30] VITALS: BP 119/74; PULSE 78; RESP 16; TEMP 97.7; O2SAT 99
[2024-08-27] MEDS ORDERED: LAMO100T PO (09:27)
[2024-08-27] MEDS ORDERED: OLAN5TAB75 PO (09:57)
[2024-08-27 19:00] VITALS: RESP 18; O2SAT 100
[2024-08-27 19:41] VITALS: BP 119/86; PULSE 82; RESP 18; TEMP 97.4; O2SAT 100
[2024-08-28 07:00] VITALS: RESP 16; O2SAT 99
[2024-08-28 08:00] VITALS: BP 113/82; PULSE 83; RESP 16; TEMP 97.3; O2SAT 99
[2024-08-28 09:05] VITALS: BP 113/82; PULSE 83; RESP 16; TEMP 97.3; O2SAT 99
== END 2024-08-28 11:30 | DRG 750 ==
LOC: ER 19:48 → ED HOLD 07-13 13:45 → ADULT MH 07-13 21:05
PROVIDERS: ADMIT Psychiatry & Neurology Psychiatry; ATTEND Psychiatry & Neurology Psychiatry
PROC: GZHZZZZ Group Psychotherapy (ICD-10-PCS; principal; 2024-07-14)
PROC: GZ51ZZZ Individual Psychotherapy, Behavioral (ICD-10-PCS; 2024-07-14)
DX: F25.0 Schizoaffective disorder, bipolar type (principal); D68.00 Von Willebrand disease, unspecified; R45.851 Suicidal ideations; Z20.822 Contact with and (suspected) exposure to COVID-19; E87.6 Hypokalemia; F31.81 Bipolar II disorder; F43.10 Post-traumatic stress disorder, unspecified; D72.829 Elevated white blood cell count, unspecified; F90.0 Attention-deficit hyperactivity disorder, predominantly inattentive type; F60.3 Borderline personality disorder; T50.992A Poisoning by other drugs, medicaments and biological substances, intentional self-harm, initial encounter; Y92.89 Other specified places as the place of occurrence of the external cause; Z88.8 Allergy status to other drugs, medicaments and biological substances; Z79.899 Other long term (current) drug therapy
CPT/HCPCS: 36415; 70450; 71045; 80048; 80053; 80178; 80305; 80320; 80329; 81001; 81025; 82330; 82550; 82553; 82948; 83605; 83735; 84145; 84443; 85025; 85651; 87040; 87081; 87811; 93005; 95816; 96374; 99285; A6250; C1758; J1200; J1630; J2060; J2310; J2426; Q0163; Q0177

== ENCOUNTER 2024-10-26 09:43 | Emergency (ER) | payer MEDICAID ==
[~2024-10-26] VITALS: Ht 162.6 cm; Wt 85.6 kg
[~2024-10-26 09:43] MED LIST changes: +CLOZ100T13 PO; -FLUO10CA28 PO; -HALO5TAB PO; +LAMO100T PO; -LAMO150T2 PO; +OLAN5TAB75 PO; +PARO20TA6 PO; +PRAZ5CAP2 PO; +SUMA25TA9 PO; -TRAZ-251 PO
[2024-10-26 10:16] LABS: URINE HCG NEGATIVE (NEG)
[2024-10-26 10:18] LABS: BILIRUBIN,URINE NEGATIVE (Neg); CLARITY,URINE CLEAR (Clear); COLOR,URINE STRAW (Yellow); GLUCOSE, URINE NEGATIVE (Neg); KETONES,URINE NEGATIVE (Neg); LEUKOCYTE ESTERASE ,URINE NEGATIVE (Neg); NITRITES, URINE NEGATIVE (Neg); OCCULT BLOOD,URINE NEGATIVE (Neg); PH,URINE 5.5 (4.8-8.0); PROTEIN,URINE NEGATIVE (Neg); UROBILINOGEN,URINE 0.2 E.U/dL (0.2-1.0)
[2024-10-26 10:21] LABS: UA COLLECTION TYPE CLN CATCH MIDSTREAM
[2024-10-26] MEDS ORDERED: POLY119P2 PO (10:42)
[2024-10-26 10:54] VITALS: BP 140/83; PULSE 73; RESP 17; TEMP 97.7; O2SAT 98
== END 2024-10-26 10:53 | disposition home or self-care (01) ==
LOC: ER 09:44
DX: S00.512A Abrasion of oral cavity, initial encounter (principal); K59.00 Constipation, unspecified; Z88.6 Allergy status to analgesic agent; Z79.899 Other long term (current) drug therapy; X58.XXXA Exposure to other specified factors, initial encounter; Y93.89 Activity, other specified; Y92.89 Other specified places as the place of occurrence of the external cause; Y99.8 Other external cause status
CPT/HCPCS: 81003; 81025; 99283

== ENCOUNTER 2024-11-03 14:29 | Inpatient (IN) | payer MEDICAID ==
[~2024-11-03] VITALS: Ht 162.6 cm; Wt 84.1 kg
[~2024-11-03 14:29] MED LIST changes: +POLY119P2 PO
[2024-11-03] MEDS: normal saline 1000ML IV soln IVB ONE ×2 (15:04→19:21)
[2024-11-03 15:17] LABS: BASOPHILS % (AUTO) 0.5 % (0-1); EOSINOPHILS % (AUTO) 0 % (0-6); HEMATOCRIT 33.7 % (35.0-45.0); LYMPHOCYTES # (AUTO) 1.7 X10'3 (1.1-4.8); LYMPHOCYTES % (AUTO) 17.3 % (21-51); MEAN CORPUSCULAR HEMOGLOBIN 26.7 PG (27.0-31.0); MEAN CORPUSCULAR HGB CONC 32.6 g/dL (33.0-36.5); MEAN CORPUSCULAR VOLUME 81.7 FL (78-98); MEAN PLATELET VOLUME 6.9 FL (7.4-10.4); MONOCYTES # (AUTO) 0.5 X10'3 (0-0.9); MONOCYTES % (AUTO) 5.6 % (2-12); NEUTROPHILS # (AUTO) 7.3 X10'3 (1.8-7.7); NEUTROPHILS % (AUTO) 76.6 % (42-75); PLATELET COUNT 538 X10'3 (140-440); RED BLOOD COUNT 4.13 X10'6 (4.20-5.60); RED CELL DISTRIBUTION WIDTH 15.8 % (11.5-14.5); WHITE BLOOD COUNT 9.6 X10'3 (4.5-11.0)
[2024-11-03 15:30] LABS: ALANINE AMINOTRANSFERASE 25 U/L (12-78); ALBUMIN 3.8 G/DL (3.4-5.0); ALKALINE PHOSPHATASE 80 IU/L (46-116); ANION GAP 11 (8-16); ASPARTATE AMINO TRANSFERASE 18 U/L (10-37); BILIRUBIN,TOTAL 0.4 MG/DL (0.1-1.0); BLOOD UREA NITROGEN 11 MG/DL (7-18); BUN/CREATININE RATIO 15.9 (10.0-20.0); CALCIUM 8.6 MG/DL (8.5-10.1); CHLORIDE 101 MMOL/L (99-107); CREATININE 0.69 MG/DL (0.40-0.90); GLUCOSE 108 MG/DL (70-104); POTASSIUM 3.4 MMOL/L (3.5-5.1); SODIUM 136 MMOL/L (135-145); TOTAL CARBON DIOXIDE 24.4 MMOL/L (24-32); TOTAL PROTEIN 7.7 G/DL (6.4-8.2); eCRCL 101 ML/MIN; eGFR > 90 ML/MIN
[2024-11-03 15:38] LABS: BILIRUBIN,DIRECT 0.1 MG/DL (0-0.3); ETHANOL < 10 MG/DL (<10); MAGNESIUM 1.9 MG/DL (1.5-2.4); SALICYLATE 2.2 MG/DL (4.0-20.0); THYROID STIMULATING HORMONE 0.74 ulU/ml (0.34-4.50)
[2024-11-03 15:40] LABS: ACETAMINOPHEN < 2.0 UG/ML (10-30)
[2024-11-03] MEDS: magnesium oxide 400mg tablet PO ONE (16:31)
[2024-11-03] MEDS: magnesium sulf-water 2g/50mL 50 ML IV ONE (16:51)
[2024-11-03 19:25] LABS: BILIRUBIN,URINE NEGATIVE (Neg); CLARITY,URINE CLEAR (Clear); COLOR,URINE YELLOW (Yellow); GLUCOSE, URINE NEGATIVE (Neg); KETONES,URINE NEGATIVE (Neg); LEUKOCYTE ESTERASE ,URINE NEGATIVE (Neg); NITRITES, URINE NEGATIVE (Neg); OCCULT BLOOD,URINE NEGATIVE (Neg); PH,URINE 5.5 (4.8-8.0); PROTEIN,URINE NEGATIVE (Neg); UROBILINOGEN,URINE 0.2 E.U/dL (0.2-1.0)
[2024-11-03 19:34] LABS: URINE AMPHETAMINE SCREEN NEGATIVE (Neg); URINE BARBITUATE SCREEN NEGATIVE (Neg); URINE BENZODIAZEPINES SCREEN NEGATIVE (Neg); URINE CANNABINOID SCREEN NEGATIVE (Neg); URINE COCAINE SCREEN NEGATIVE (Neg); URINE METHADONE SCREEN NEGATIVE (Neg); URINE OPIATE SCREEN NEGATIVE (Neg); URINE PHENCYCLIDINE SCREEN NEGATIVE (Neg)
[2024-11-03 19:37] LABS: UA COLLECTION TYPE STRAIGHT CATH
[2024-11-04 10:44] LABS: URINE HCG NEGATIVE (NEG)
[2024-11-04] MEDS: LORazepam 1 MG tablet PO ONE (12:05)
[2024-11-04] MEDS ORDERED: loperamide 2mg capsule PO PRN (15:45)
[2024-11-04] MEDS ORDERED: acetaminophen 325mg tablet PO PRN (15:45)
[2024-11-04] MEDS ORDERED: mag hydrox/Alum hydrox/simeth 30ml oral suspension PO PRN (15:45)
[2024-11-04 16:09] VITALS: BP 145/104; PULSE 95; RESP 16; TEMP 97.5; O2SAT 100
[2024-11-04] MEDS ORDERED: PARO40TA4 PO (17:35)
[2024-11-04] MEDS ORDERED: PALI234D IM (17:35)
[2024-11-04] MEDS ORDERED: GUAN1TAB PO (17:49)
[2024-11-04] MEDS ORDERED: CLOZ50TA9 PO (17:49)
[2024-11-04] MEDS ORDERED: GUAN2TAB PO (17:49)
[2024-11-04] MEDS ORDERED: LAMO200T10 PO (17:52)
[2024-11-04] MEDS ORDERED: OLAN15TA97 PO (17:52)
[2024-11-04] MEDS ORDERED: PRAZ5CAP2 PO (17:53)
[2024-11-04] MEDS ORDERED: POLY17PO59 PO (17:54)
[2024-11-04 19:00] VITALS: RESP 16; O2SAT 99
[2024-11-04 20:00] VITALS: PULSE 89; RESP 18; TEMP 97.3; O2SAT 99
[2024-11-04] MEDS: OLANZAPINE 5 MG TABLET PO SCH (22:00)
[2024-11-04] MEDS: lamoTRIgine 100mg tablet PO SCH (22:00)
[2024-11-04] MEDS: prazosin 5mg capsule PO SCH (22:00)
[2024-11-04] MEDS: guanFACINE 1 mg tablet PO SCH (22:01)
[2024-11-04] MEDS: clozapine 25mg tablet PO SCH (22:01)
[2024-11-05 07:00] VITALS: RESP 17; O2SAT 100
[2024-11-05 08:00] VITALS: BP 138/97; PULSE 86; RESP 17; TEMP 98.4; O2SAT 100
[2024-11-05] MEDS: polyethylene glycol 3350 17gm powd pack PO SCH (08:00)
[2024-11-05] MEDS: guanFACINE 1 mg tablet PO SCH (08:14)
[2024-11-05] MEDS: PARoxetine 20mg tablet PO SCH (08:41)
[2024-11-05] MEDS: hydrOXYzine 25 MG tablet PO PRN (12:28)
[2024-11-05 19:00] VITALS: RESP 12; O2SAT 99
[2024-11-05 20:00] VITALS: BP 127/77; PULSE 89; RESP 12; TEMP 97.9; O2SAT 99
[2024-11-06 08:00] VITALS: RESP 18; O2SAT 99
[2024-11-06 08:33] LABS: ALBUMIN 3.8 G/DL (3.4-5.0); ANION GAP 9 (8-16); BLOOD UREA NITROGEN 8 MG/DL (7-18); BUN/CREATININE RATIO 10.1 (10.0-20.0); CALCIUM 9.3 MG/DL (8.5-10.1); CHLORIDE 101 MMOL/L (99-107); CREATININE 0.79 MG/DL (0.40-0.90); GLUCOSE 140 MG/DL (70-104); SODIUM 137 MMOL/L (135-145); TOTAL CARBON DIOXIDE 27.5 MMOL/L (24-32); eCRCL 88 ML/MIN; eGFR 84 ML/MIN
[2024-11-06 08:56] VITALS: BP 124/89; PULSE 82; RESP 18; TEMP 97.9; O2SAT 99
[2024-11-06] MEDS: diphenhydrAMINE 50 mg/ml inj ONE (16:50)
[2024-11-06] MEDS: haloperidol lactate 5mg/ml inj ONE (16:50)
[2024-11-06] MEDS: LORazepam 2 mg/ml vial ONE (16:50)
[2024-11-06 20:00] VITALS: BP 128/85; PULSE 70; RESP 16; TEMP 97.1; O2SAT 99
[2024-11-07 08:00] VITALS: RESP 16; O2SAT 99
[2024-11-07 09:00] VITALS: BP 119/75; PULSE 122; RESP 16; TEMP 97.6; O2SAT 99
[2024-11-07 10:10] VITALS: PULSE 80
[2024-11-07] MEDS: bisacodyl 10mg suppository rectal RC PRN (17:06)
[2024-11-07 19:00] VITALS: RESP 18; O2SAT 99
[2024-11-07 20:00] VITALS: BP 115/80; PULSE 75; RESP 18; TEMP 98; O2SAT 99
[2024-11-08 07:30] VITALS: BP 117/77; PULSE 84; RESP 16; TEMP 97.6; O2SAT 100
[2024-11-08] MEDS: magnesium hydroxide 30ml (MOM) UD suspension PO PRN (12:55)
[2024-11-08 15:10] VITALS: BP 117/78; PULSE 86; RESP 16; TEMP 97.8; O2SAT 100
[2024-11-08 19:00] VITALS: RESP 18; O2SAT 99
[2024-11-08 20:00] VITALS: BP 115/80; PULSE 88; RESP 18; TEMP 97.6; O2SAT 99
[2024-11-09 07:30] VITALS: BP 118/73; PULSE 94; RESP 16; TEMP 97.2; O2SAT 99
[2024-11-09 20:00] VITALS: BP 118/81; PULSE 84; RESP 15; TEMP 98.3; O2SAT 97
[2024-11-10] VITALS (8 sets, daily range): BP systolic 107–139; BP diastolic 78–87; PULSE 72–108; RESP 14–18; TEMP 97.1–99.1; O2SAT 97–100
[2024-11-10] MEDS: acetaminophen 325mg tablet PO PRN (15:22)
[2024-11-10] MEDS: haloperidol lactate 5mg/ml inj ONE (20:20)
[2024-11-10] MEDS: LORazepam 2 mg/ml vial ONE (20:21)
[2024-11-10] MEDS: diphenhydrAMINE 50 mg/ml inj ONE (20:22)
[2024-11-11 07:30] VITALS: BP 106/71; PULSE 66; RESP 15; TEMP 97.6; O2SAT 100
[2024-11-11] MEDS: haloperidol lactate 5mg/ml inj IM ONE (12:05)
[2024-11-11] MEDS: LORazepam 2 mg/ml vial IM ONE (12:06)
[2024-11-11] MEDS: diphenhydrAMINE 50 mg/ml inj IM ONE (12:06)
[2024-11-11 19:00] VITALS: RESP 16; O2SAT 99
[2024-11-11 20:00] VITALS: BP 112/70; PULSE 90; RESP 16; TEMP 98.1; O2SAT 99
[2024-11-11] MEDS: clozapine 25mg tablet PO SCH (21:58)
[2024-11-12 07:00] VITALS: BP 112/62; PULSE 81; RESP 16; TEMP 97.9; O2SAT 98
[2024-11-12 19:00] VITALS: RESP 16; O2SAT 98
[2024-11-12 20:00] VITALS: BP 107/67; PULSE 76; RESP 16; TEMP 98.1; O2SAT 98
[2024-11-13 07:00] VITALS: RESP 14; O2SAT 100
[2024-11-13 08:01] VITALS: BP 128/78; PULSE 66; RESP 14; TEMP 97.7; O2SAT 100
[2024-11-13 19:00] VITALS: RESP 18; O2SAT 100
[2024-11-13 20:00] VITALS: BP 112/65; PULSE 78; RESP 18; TEMP 97.2; O2SAT 100
[2024-11-13] MEDS: OLANZAPINE 5 MG TABLET PO SCH (20:14)
[2024-11-13] MEDS: clozapine 25mg tablet PO SCH (20:14)
[2024-11-13] MEDS: psyllium seed 5.8 gm packet (sugar-free) PO SCH (20:17)
[2024-11-14 07:00] VITALS: RESP 16; O2SAT 97
[2024-11-14 08:00] VITALS: BP 110/70; PULSE 63; RESP 16; TEMP 97.8; O2SAT 97
[2024-11-14 19:00] VITALS: RESP 18; O2SAT 98
[2024-11-14 20:00] VITALS: BP 112/67; PULSE 74; RESP 18; TEMP 97.5; O2SAT 98
[2024-11-15 07:00] VITALS: BP 174/71; PULSE 80; RESP 16; TEMP 98; O2SAT 97; O2SAT 99
[2024-11-15 10:20] LABS: BASOPHILS % (AUTO) 0.5 % (0-1); EOSINOPHILS % (AUTO) 0 % (0-6); HEMOGLOBIN 11.2 g/dl (12.0-16.0); LYMPHOCYTES # (AUTO) 2.1 X10'3 (1.1-4.8); MEAN CORPUSCULAR HEMOGLOBIN 26.4 PG (27.0-31.0); MEAN CORPUSCULAR HGB CONC 32.8 g/dL (33.0-36.5); MEAN CORPUSCULAR VOLUME 80.4 FL (78-98); MONOCYTES # (AUTO) 0.7 X10'3 (0-0.9); MONOCYTES % (AUTO) 8.5 % (2-12); NEUTROPHILS # (AUTO) 5.6 X10'3 (1.8-7.7); PLATELET COUNT 481 X10'3 (140-440); RED BLOOD COUNT 4.23 X10'6 (4.20-5.60); RED CELL DISTRIBUTION WIDTH 15.6 % (11.5-14.5); WHITE BLOOD COUNT 8.5 X10'3 (4.5-11.0)
[2024-11-15 18:44] VITALS: RESP 16
[2024-11-15 20:00] VITALS: BP 113/82; PULSE 77; RESP 16; TEMP 97.4; O2SAT 100
[2024-11-16 07:00] VITALS: RESP 18; O2SAT 99
[2024-11-16] MEDS ORDERED: CLOZ100T14 PO (07:22)
[2024-11-16 08:00] VITALS: BP 123/78; PULSE 75; RESP 18; TEMP 98; O2SAT 99
[2024-11-16] MEDS: clozapine 100mg tablet PO SCH (08:14)
[2024-11-22] MEDS ORDERED: paliperidone palmitate inj 234 MG/1.5 ML SYRINGE IM SCH (09:00)
== END 2024-11-16 14:02 | disposition home or self-care (01) | DRG 750 ==
LOC: ER 14:29 → ADULT MH 11-04 10:30 → UNDOADMIN 11-04 10:30 → ADULT MH 11-04 15:33
PROVIDERS: ADMIT Psychiatry & Neurology Psychiatry; ATTEND Psychiatry & Neurology Psychiatry
PROC: GZHZZZZ Group Psychotherapy (ICD-10-PCS; principal; 2024-11-05)
PROC: GZ51ZZZ Individual Psychotherapy, Behavioral (ICD-10-PCS; 2024-11-05)
DX: F25.0 Schizoaffective disorder, bipolar type (principal); D68.00 Von Willebrand disease, unspecified; E87.6 Hypokalemia; T42.4X2A Poisoning by benzodiazepines, intentional self-harm, initial encounter; Z20.822 Contact with and (suspected) exposure to COVID-19; F31.9 Bipolar disorder, unspecified; F43.10 Post-traumatic stress disorder, unspecified; F90.9 Attention-deficit hyperactivity disorder, unspecified type; Z89.519 Acquired absence of unspecified leg below knee; Z79.899 Other long term (current) drug therapy; Z88.6 Allergy status to analgesic agent
CPT/HCPCS: 36415; 70450; 73700; 74018; 80048; 80076; 80305; 80320; 80329; 81003; 81025; 83735; 84443; 84702; 85025; 87081; 87811; 93005; 96365; 99285; A4620; C1758; J1200; J1630; J2060; J7030; Q0177

== ENCOUNTER 2025-02-16 18:25 | Emergency (ER) | payer MEDICAID ==
[~2025-02-16] VITALS: Ht 162.6 cm; Wt 92.1 kg
[~2025-02-16 18:25] MED LIST changes: +HYDR-3686 PO; -LAMO100T PO; +LAMO200T10 PO; +MULT9LIQ7 PO; -OLAN5TAB75 PO; +PALI234D IM; -PARO20TA6 PO; +PARO40TA4 PO; -POLY119P2 PO; +POLY17PO59 PO; -SUMA25TA9 PO
--- NOTE | 2025-02-16 19:21 | ELECTROCARDIOGRAPH REPORT ---
[facility] Test Date: 2025-02-16 Test Time: 19:18:15 Pat Name: CEZAR MORRISON Department: [facility]- Patient ID: [facility]-[id number] Room: Gender: F Knobber: : 1990 Requested By: AZALEA GALDAMEZ Order Number: [id number] Reading MD: Dr. Emelyn Brooks Measurements Intervals Industry Rate: 98 P: 9 AL: 149 QRS: 62 QRSD: 95 T: 36 QT: 333 QTc: 426 Interpretive Statements Sinus rhythm Electronically Signed On 02-17-2025 13:04:[address] Emelyn Brooks Please click the below link to view image of tracing.
[2025-02-16 19:41] LABS: BASOPHILS # (AUTO) 0.1 X10'3 (0-0.2); BASOPHILS % (AUTO) 0.5 % (0-1); EOSINOPHILS % (AUTO) 0 % (0-6); HEMATOCRIT 39.9 % (35.0-45.0); HEMOGLOBIN 13.2 g/dl (12.0-16.0); LYMPHOCYTES # (AUTO) 2.1 X10'3 (1.1-4.8); LYMPHOCYTES % (AUTO) 13.3 % (21-51); MEAN CORPUSCULAR HEMOGLOBIN 27.1 PG (27.0-31.0); MEAN CORPUSCULAR HGB CONC 33.1 g/dL (33.0-36.5); MEAN CORPUSCULAR VOLUME 81.9 FL (78-98); MEAN PLATELET VOLUME 7.5 FL (7.4-10.4); MONOCYTES % (AUTO) 6.5 % (2-12); NEUTROPHILS # (AUTO) 12.6 X10'3 (1.8-7.7); NEUTROPHILS % (AUTO) 79.7 % (42-75); PLATELET COUNT 510 X10'3 (140-440); RED BLOOD COUNT 4.87 X10'6 (4.20-5.60); RED CELL DISTRIBUTION WIDTH 16.7 % (11.5-14.5); WHITE BLOOD COUNT 15.8 X10'3 (4.5-11.0)
[2025-02-16 19:59] LABS: ALANINE AMINOTRANSFERASE 78 U/L (12-78); ALBUMIN 4.2 G/DL (3.4-5.0); ALBUMIN/GLOBULIN RATIO 1.2 (1.1-1.5); ALKALINE PHOSPHATASE 118 IU/L (46-116); ANION GAP 13 (8-16); ASPARTATE AMINO TRANSFERASE 33 U/L (10-37); BILIRUBIN,TOTAL 0.5 MG/DL (0.1-1.0); CHLORIDE 105 MMOL/L (99-107); GLUCOSE 115 MG/DL (70-104); POTASSIUM 3.6 MMOL/L (3.5-5.1); PRO BRAIN NATRIURETIC PEPTIDE 53 PG/ML (0-125); SODIUM 140 MMOL/L (135-145); TOTAL CARBON DIOXIDE 22.5 MMOL/L (24-32); TOTAL PROTEIN 7.7 G/DL (6.4-8.2)
[2025-02-16 20:17] LABS: BLOOD UREA NITROGEN 11 MG/DL (7-18); BUN/CREATININE RATIO 13.3 (10.0-20.0); CALCIUM 9.3 MG/DL (8.5-10.1); CREATININE 0.83 MG/DL (0.40-0.90); eCRCL 84 ML/MIN; eGFR 80 ML/MIN
--- NOTE | 2025-02-16 20:38 | RADIOLOGY REPORT ---
Clinical History CP Comparison None Technique: single view chest Without Contrast CEZAR MORRISON, [id number] FINDINGS: Trachea is midline, heart size normal, cardiomediastinal silhouette unremarkable. There is no pneumonia or pulmonary vascular congestion, no pneumothorax, no evidence of pleural or pe ricardial effusion. Osseous structures reveal no significant pathology on this single image. Clothing artifacts are projected over the chest. IMPRESSION: 1. No evidence of acute cardiopulmonary disease. This report was electronically signed by Pato Quinonez MD on 02/16/2025 8:34:33 PM.
[2025-02-16 21:48] LABS: MAGNESIUM 1.9 MG/DL (1.5-2.4)
[2025-02-16 21:58] LABS: BILIRUBIN,URINE NEGATIVE (Neg); CLARITY,URINE CLEAR (Clear); COLOR,URINE YELLOW (Yellow); GLUCOSE, URINE NEGATIVE (Neg); KETONES,URINE NEGATIVE (Neg); LEUKOCYTE ESTERASE ,URINE NEGATIVE (Neg); NITRITES, URINE NEGATIVE (Neg); OCCULT BLOOD,URINE NEGATIVE (Neg); PROTEIN,URINE NEGATIVE (Neg); UROBILINOGEN,URINE 0.2 E.U/dL (0.2-1.0)
[2025-02-16] MEDS: hydrOXYzine 25 MG tablet PO ONE (22:00)
[2025-02-16 22:04] LABS: UA COLLECTION TYPE CLN CATCH MIDSTREAM
[2025-02-16] MEDS ORDERED: ONDA-243 PO (22:17)
--- NOTE | 2025-02-16 22:18 | Physician Documentation ---
History of Present Illness Chief Complaint: See Chief Complaint Stated Complaint: ANXIETY Time Seen by MD: 21:33 Primary Medical Doctor: N/A Source: patient, family Mode of Arrival: EMS Exam Limitations: no limitations HPI She is a 34-year-old female presenting to our emergency department with multiple complaints of insomnia, anxiety, pseudo-seizure, nausea, vomiting, diarrhea and general malaise. She states that she has been having some PTSD and panic attacks which has been causing her to not sleep well. For the past couple of days she has been experiencing vomiting up to 10 times a day. Today she had an episode of disorientation from a possible pseudo-seizure it was witnessed by her family member. By EMS, she received 4 mg of Zofran and reports relief from her nausea. She denies any SI or HI at this time. He denies any chest pain, syncope or shortness of breath. Medication Reconciliation Allergies: Coded Allergies: NSAIDS (Non-Steroidal Anti-Inflamma (Verified Allergy, Unknown, 02/16/25) Patient has Von Willebrand Disease Scheduled Clozapine (Clozapine), 100 MG PO HS Guanfacine Hcl (TENEX tablet), 3 MG PO HS Lamotrigine (Lamotrigine), 1 TAB PO BID Multivits W-Min/Ferrous Gluc (Centrum Multivit-Mineral Liq), 15 ML PO DAILY Paliperidone Palmitate (Invega Sustenna), 234 MG IM ONCE, (Reported) Paroxetine HCl (Paroxetine HCl), 1 TAB PO DAILY Polyethylene Glycol 3350 (Polyethylene Glycol 3350), 1 PKT PO DAILY Prazosin HCl (Prazosin HCl), 1 CAP PO HS Prazosin HCl (Prazosin HCl), 5 MG PO HS Scheduled PRN Hydroxyzine Hcl* (Atarax*), 50 MG PO Q6H PRN for for anxiety/agitation ONDANSETRON ODT 4mg tablet (Ondansetron Odt), 1 TAB PO Q6H PRN PRN for n ausea/vomiting Past Medical History Past Medical History: No Pertinent History Patient History: Not known due to adoption Review of Systems All Other Systems at this time: Reviewed and Negative Physical Exam Vital Signs: RN Vital Signs have been reviewed: Yes, Heart Rate: 68, Respiratory Rate: 10, BP: 126/74, Pulse Oximetry: 96 Oxygen Flow Rate: 0 Pulse Oximetry Reflects: adequate oxygenation Physical Exam General: Well developed, well nourished, mild distress. HEENT: Atraumatic, normal conjunctiva, moist mucous membranes. Neck: Full range of motion, supple. Respiratory: Lungs clear, no respiratory distress. Chest: No accessory muscle use, nontender. Cardiovascular: Regular rate and rhythm. Gastrointestinal: Soft, nontender, nondistended. Bowels sounds present. Extremities: Normal range of motion, nontender, normal capillary refill, no deformity. Back: No CVA tenderness. Neurologic: Oriented x4. Psychiatric: Normal mood and affect. Skin: Normal color, warm and dry. No edema, no ecchymosis Progress Results/Orders Reviewed/noted all lab results: Yes Results/Orders Completed Orders - RODY MELCHOR Hydroxyzine Tablet (Atarax Tablet) (02/16/25 21:35) Urinalysis, Cult If Indicated (02/16/25 21:40) Medications Received in ER Medications (Trade) Dose Ordered Sig/Xiao Route PRN Reason Start Time Stop Time Status Last Admin Dose Admin (Atarax tablet) 25 mg ONCE ONCE PO 02/16/25 21:35 02/16/25 21:53 DC 02/16/25 22:00 25 MG Vital Signs 02/16/25 02/16/25 02/16/25 18:44 19:08 20:39 Pulse 110 68 Resp 15 12 10 B/P (MAP) 112/51 126/74 (91) Pulse Ox 100 96 O2 Flow Rate 0 Laboratory Tests Test 02/16/25 19:28 02/16/25 21:17 02/16/25 21:45 White Blood Count 15.8 H Red Blood Count 4.87 Hemoglobin 13.2 Hematocrit 39.9 Mean Corpuscular Volume 81.9 Mean Corpuscular Hemoglobin 27.1 Mean Corpuscular Hemoglobin Concent 33.1 Red Cell Distribution Width 16.7 H Platelet Count 510 H Mean Platelet Volume 7.5 Neutrophils (%) (Auto) 79.7 H Lymphocytes (%) (Auto) 13.3 L Monocytes (%) (Auto) 6.5 Eosinophils (%) (Auto) 0 Basophils (%) (Auto) 0.5 Neutrophils # (Auto) 12.6 H Lymphocytes # (Auto) 2.1 Monocytes # (Auto) 1.0 H Eosinophils # (Auto) 0.0 Basophils # (Auto) 0.1 CBC Comment Sodium Level 140 Potassium Level 3.6 Chloride Level 105 Carbon Dioxide Level 22.5 L Anion Gap 13 Blood Urea Nitrogen 11 Creatinine 0.83 Estimated GFR/1.73 m2 80 BUN/Creatinine Ratio 13.3 Glucose Level 115 H Calcium Level 9.3 Magnesium Level 1.9 Total Bilirubin 0.5 Aspartate Amino Transf (AST/SGOT) 33 Alanine Aminotransferase (ALT/SGPT) 78 Alkaline Phosphatase 118 H Troponin I High Sensitivity 5 5 Pro-B-Type Natriuretic Peptide 53 Total Protein 7.7 Albumin 4.2 Globulin 3.5 Albumin/Globulin Ratio 1.2 Chemistry Comments Troponin I High Sens Percent Delta 0 Troponin I Hi Sens Absolute Change 0 Urine Specimen Description Cln catch midstream Urine Color Yellow Urine Clarity Clear Urine pH 6.0 Urine Specific [place] 1.015 Urine Protein Negative Urine Glucose (UA) Negative Urine Ketones Negative Urine Occult Blood Negative Urine Nitrite Negative Urine Bilirubin Negative Urine Urobilinogen 0.2 Urine Leukocyte Esterase Negative Urine Culture Indicated Not ind Volume Urine Centrifuged 10 ml Urine Comment EKG/XRAY/CT/US/VASC/MRI EKG : Additional Comment Electrocardiogram: as interpreted by me; normal sinus rhythm, no axis deviation, no acute ischemia, normal intervals, no pre-excitation pattern. Rate: 98 bpm. Chest X-Ray : Additional Comments Chest x-ray: as interpreted by me; no large effusion, no large infiltrate, normal mediastinum. Medical Decision Making Findings Chepe is a 34-year-old female here with multiple medical complaints of general malaise, nausea vomiting and diarrhea, anxiety, insomnia and possible pseudo- seizure. Her labs are negative for any electrolyte disturbances, her troponins are negative. I consulted with Dr. Redmond regarding this patient due to her elevated WBC of 15 which he attributed to her frequent vomiting. She is afe brile and not tachycardic. Her EKG was normal in her chest x-ray was normal as well. Using shared decision making her and her partner agree to be discharged with Zofran and instructions for increasing oral hydration with electrolytes. She received Atarax for her anxiety while in the department although a few minutes after taking it she had an episode of vomiting so it is unknown if she actually got this medication. He does have a prescription for Atarax at home and was instructed to take 1 more tablet 25 mg when she got home and go to bed. She should follow up with the primary care provider in the next 3 days and return back here for any new or worsening symptoms. Differential Dx:Considerations: Include: Angina/AR, Appendicitis, Ga stritis/PUD, Urinary tract infection Additional Comments Suicidal ideation, homicidal ideation Departure Disposition: 01 HOME / SELF CARE / HOMELESS Impression: Primary Impression: Gastroenteritis Condition: Stable Discharge Instructions: Viral Gastroenteritis, Adult, [id number] Additional Instructions: Please use Zofran as prescribed to help with your nausea. Increase your fluids significantly and drink electrolyte containing beverages as we talked about such as Gatorade or Liquid IV. Please follow-up with your primary care provider in the next 3 days. If you any new or worsening symptoms please come back to the emergency department. Referrals: NO PRIMARY CARE PROVIDER (PCP) Prescriptions ONDANSETRON ODT 4mg tablet (ONDANSETRON ODT) 4 Mg Tab.rapdis 1 TAB PO Q6H PRN PRN for nausea/vomiting for 5 Days, #20 TAB 0 Refills Prov: RODY MELCHOR 02/16/25 Education Educated: Patient, Family Educated regarding: diagnosis, treatment, prognosis, need for follow up Signature Scribe Signature: . Attestation: Scribed for Rody Melchorp by Rody Bueno NP . 02/17/25 01:13 RODY MELCHOR February 16, 2025 22:18
[2025-02-16 22:31] VITALS: BP 132/84; PULSE 78; RESP 16; TEMP 98.6; O2SAT 99
== END 2025-02-16 22:34 | disposition home or self-care (01) ==
LOC: ER 18:25
DX: K52.9 Noninfective gastroenteritis and colitis, unspecified (principal); F41.9 Anxiety disorder, unspecified; Z88.6 Allergy status to analgesic agent; Z79.899 Other long term (current) drug therapy
CPT/HCPCS: 36415; 71045; 80053; 81003; 83735; 83880; 84484; 85025; 93005; 99285; Q0177